=== PATIENT | female | born 1975 | race Caucasian/White ===

== ENCOUNTER 2016-11-06 06:11 | Inpatient (IN) ==
[2016-11-06] MEDS ORDERED: Lidocaine -MPF 1% 2 ML VIAL ID ONE (06:26)
[2016-11-06] MEDS: Ringers Solution, Lactated 1,000 ML IVC SCH ×2 (06:50→08:54)
[2016-11-06] MEDS ORDERED: Albuterol 2.5 MG/3 ML NEBULIZER IH ONE (06:52)
[2016-11-06] MEDS ORDERED: *HR* FentaNYL (PF) 100 MCG/2 ML VIAL ONE ×2 (07:08→08:23)
[2016-11-06] MEDS ORDERED: *HR* Midazolam HCl 2 MG/2 ML VIAL ONE (07:08)
[2016-11-06] MEDS ORDERED: *HR* Propofol 200 MG/20 ML VIAL IVP ONE (07:09)
[2016-11-06] MEDS ORDERED: *HR* Rocuronium Bromide 50 MG/5 ML VIAL ONE (07:11)
[2016-11-06] MEDS ORDERED: Lidocaine -MPF 2% 2 ML VIAL ONE (07:11)
[2016-11-06] MEDS ORDERED: *HR* Succinylcholine 200 MG/10 ML VIAL IVP ONE (07:11)
[2016-11-06 07:15] LABS: Basophils # 0.1 K/mcL (0.0-0.2); Basophils % 0.8 %; Eosinophils # 0.2 K/mcL (0.0-0.6); Eosinophils % 2.5 %; Hematocrit 40.8 % (35.3-44.9); Hemoglobin 13.3 g/dL (11.5-15.4); Immature Granulocytes % 0.2 % (0-4); Lymphocytes % 22.8 %; Mean Corpuscular HGB Conc 32.6 g/dL (31.6-35.5); Mean Corpuscular Hemoglobin 27.6 pg (28.0-33.3); Mean Corpuscular Volume 84.6 fL (83.0-100.0); Monocytes # 0.6 K/mcL (0.0-1.3); Platelet Count 209 K/mcL (140-400); Red Blood Count 4.82 M/mcL (3.82-4.97); Red Cell Distribution Width 13.1 % (11.5-14.5); Segmented Neutrophils % 66.7 %
[2016-11-06] MEDS ORDERED: CeFAZolin Pre 2,000 MG/100 ML 2,000 MG/100 ML BAG IVPB ONE (07:17)
--- NOTE | 2016-11-06 07:28 | Anesthesia Evaluation PreOp ---
Date of Encounter: 11/06/16 Time of Encounter: 07:26 - Past History Planned Operation: Total Abdominal Hysterectomy - BSO Cardiac History: Denies any Significant Hx Pulmonary History: Smoker MUSEUM TECHNICIAN History: Other (Anxiety/Depression) Other Medical History: GERD Anesthesia History: No Prior Anesthetic Complications, Past Anesthesia (Leep, BPS, c/s x 2 , Left knee scope, labral shaving) : No Test: Negative (10/30/2016) Alcohol Use: occasionally Drug use: marijuana Medications and Allergies Biotin 1,000 mcg PO DAILY 07/22/16 [History] Omeprazole [PriLOSEC] 20 mg PO DAILY 07/22/16 [History] hydrOXYzine HCl [Hydroxyzine HCl] 25 mg PO DAILY 07/22/16 [History] Allergies meperidine [From Demerol] Allergy (Verified 11/06/16 07:09) Confusion - Meds/Allergy Pre-op Review Medications Reviewed: Yes Allergies Reviewed: Yes Beta Blockers on Current Med List: No Anesthesia Results - Labs 11/06/16 06:45 Laboratory Tests 10/30/16 11/06/16 15:50 06:45 WBC 9.0 Hgb 13.3 Hct 40.8 Plt Count 209 Serum , Qual Negative Anesthesia Exam O2 Sat Height 1.6 m Height 1.6 m Weight 79.379 kg Weight 79.379 kg O2 Sat by Pulse Oximetry 99 O2 Sat by Pulse Oximetry 99 Vital Signs Temp Pulse Resp BP Pulse Ox 98.1 F 86 18 112/74 99 11/06/16 06:55 11/06/16 06:55 11/06/16 06:55 11/06/16 06:55 11/06/16 06:55 Height: 5'3'' Weight: 175# NPO (# of Hours): > 8 hrs Pain Scale: 0 Pain Scale Used: Numeric (1 - 10) - HEENT Pupil (Motor): Pupils equal, EOMI Mallampati: II Teeth: Normal Oral Opening: Greater than 3 - MUSEUM TECHNICIAN LOC: Oriented MUSEUM TECHNICIAN Motor: Normal RUE, Normal LUE, Normal RLE, Normal LLE, Normal Face MUSEUM TECHNICIAN Sensory: Normal: RUE, LUE, RLE, LLE, Face - Cardiac Rhythm: Regular Murmur: None JVD: No Carotid Bruit: No - Pulmonary Breath Sounds: bilateral Clear Respiratory Effort: Symmetrical Anesthesia Assess/Plan ASA Score: 2 Modified Foster Scale for Level of Consciousness: Cooperative, oriented, and tranquil Anesthetic Plan: General Autologous Blood: Yes Monitoring Plan: Standard Monitors Recovery Plan: PACU
--- NOTE | 2016-11-06 07:39 | History & Physical Report ---
Date of Encounter: 11/06/16 Time of Encounter: 07:39 24 Hour HP Update - Instructions Instructions: If the History and Physical is less than 30 days old and was completed prior to A.M. admission and or procedure and has NOT been updated on calendar day of procedure please complete this update prior to performing procedure. - Update Patient reports changes in Medical Condition: No Changes in examination, assessment, or condition: No Changes in Medication: No Preop tests/diagnostics Reviewed: Yes Surgery Remains Indicated: Yes Consent for Planned Operative Procedure(s) Verified: Yes - Pre-Operative Checklist Preoperative Checklist Indicated: Yes Prophylactic Antibiotic Ordered: Yes Home Medications Include Beta Wenceslao: No Beta Wenceslao Taken Today (Day of Surgery): No Beta Wenceslao Taken Yesterday (Day Prior to Surgery): No Is VTE Prophylaxis Indicated?: Yes
[2016-11-06] MEDS ORDERED: Dexamethasone 4 MG/ML VIAL ONE (08:35)
[2016-11-06] MEDS ORDERED: Ondansetron 4 MG/2 ML VIAL ONE (08:35)
[2016-11-06] MEDS ORDERED: *HR* HYDROmorphone 2 MG/ML SYRINGE ONE (08:36)
[2016-11-06] MEDS ORDERED: Neostigmine Methylsulfate 3 MG/3 ML SYRINGE ONE (09:28)
[2016-11-06] MEDS ORDERED: *HR* Promethazine 25 MG/ML VIAL IVP PRN ×2 (09:33→22:51)
--- NOTE | 2016-11-06 10:25 | OB/GYN Procedure Note ---
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 An incision was made into the abdomen down through the subcutaneous tissue, muscular fascia and peritoneum. Once inside the abdominal cavity, an O'Jairo O'Sandhu retractor was placed to expose the pelvic cavity with lap sponges. The uterus was then identified and grasped on the fundus with facundo clamps with upward traction. The round ligaments on either side were identified and individually dissected and ligated with the Ligasure device. This allowed us to then create a bladder flap by both blunt and sharp dissection. The fallopian tube and ovarian ligament were isolated through the broad ligament from the uterine body and ligated with the Ligasure device as well. We then skeletonized the uterine vessels on either side and carefully dissected the bladder flap anteriorly. The bladder was found to be mildly adherent to the cervix but we were able to take it down without too much difficulty. Posteriorly, the peritoneum was dissected down toward the uterosacral ligaments. The Ligasure device was then placed at each isthmic portion of the cervical body junction where the uterine arteries adjoined the uterus. These were clamped, ligated and divided using the Ligasure. The remainder of the uterus was then removed by the clamp-cut- ligation technique using the Ligasure on all major pedicles. With removal of the uterus, the vaginal cuff was closed in the usual manner using 0-vicryl in interrupted manner. I performed a cystoscopy and confirmed that there were no stitches through the bladder. I also confirmed ureteral flow from both orifices. I changed gloves and gown and returned my attention to the abdomen where hemostasis was then inspected and secured throughout the entire area. The ovaries were left in situ. The lap sponges were then removed and the self- retaining retractor was removed. The patient tolerated the operation nicely. There were no complications associated with this surgical procedure to this point. The sponge count was correct times 2 at this time. The Verduzco catheter was inspected and clear urine was noted. Having removed all instruments and packs, we then began closure of the abdomen. The fascia was closed with #0 Vicryl in a running continuous manner and the subcutaneous tissue was also closed with #3-0 Vicryl in interrupted manner. The skin was closed with #4-0 vicryl. The patient tolerated the operation nicely and was then taken to the Recovery Room in good condition.
[2016-11-06] MEDS: *HR* HYDROmorphone (PF) 1 MG/ML SYRINGE IVP PRN ×2 (10:30→10:46)
[2016-11-06] MEDS ORDERED: Naloxone 0.4 MG/ML INJ IVP PRN (10:36)
[2016-11-06] MEDS ORDERED: *HR* OxyCODONE/APAP 5/325 TABLET PO PRN (10:36)
--- NOTE | 2016-11-06 11:02 | Anesthesia Evaluation Post Op ---
Date of Encounter: 11/06/16 Time of Encounter: 11:00 - Vital Signs Vital Signs: Vital Signs/O2 Sat, Most Current Temp Pulse Resp BP Pulse Ox 98.6 F 85 16 125/85 97 11/06/16 10:55 11/06/16 10:55 11/06/16 10:55 11/06/16 10:55 11/06/16 10:55 - Lungs Lungs: Clear Ascult./Percussion - Airway Airway: Non-obstructed - Cardiovascular Regular Rate - Mental Status Mental Status: Alert & Oriented, Answers Appropriately - Pain Pain Scale: 7 (dilaudid given) Pain Scale used: Numeric (1 - 10) - Nausea Vomiting Nausea Vomiting: Not Present - Hydration Hydration: Ice chips, Verduzco catheter Notes: 11/06/16 11:01 VSS, awake, stable - Discharge PostOp Status: Transfer Patient to floor
[2016-11-06] MEDS: Ibuprofen 600 MG TABLET PO PRN (16:22)
[2016-11-06] MEDS ORDERED: OxyCODONE CONC 5 MG/0.25 ML ORAL.SYG PO PRN (17:06)
[2016-11-06] MEDS ORDERED: *HR* OxyCODONE Immed Rel 5 MG TABLET PO PRN (18:15)
[2016-11-06] MEDS: *HR* OxyCODONE/APAP 10/325 TABLET PO PRN ×2 (18:18→22:46)
[2016-11-07 03:47] LABS: Basophils % 0.1 %; Eosinophils % 0.2 %; Hematocrit 37.1 % (35.3-44.9); Hemoglobin 12.3 g/dL (11.5-15.4); Immature Granulocytes % 0.5 % (0-4); Lymphocytes # 1.8 K/mcL (0.6-4.6); Lymphocytes % 16.5 %; Mean Corpuscular HGB Conc 33.2 g/dL (31.6-35.5); Mean Corpuscular Volume 84.5 fL (83.0-100.0); Mean Platelet Volume 9.8 fL (9.4-12.4); Monocytes # 0.7 K/mcL (0.0-1.3); Monocytes % 6.4 %; Neutrophils # 8.5 K/mcL (1.6-8.9); Platelet Count 210 K/mcL (140-400); Red Blood Count 4.39 M/mcL (3.82-4.97); Red Cell Distribution Width 13.1 % (11.5-14.5); Segmented Neutrophils % 76.3 %
[2016-11-07] MEDS: *HR* OxyCODONE/APAP 10/325 TABLET PO PRN ×3 (05:10→13:22)
--- NOTE | 2016-11-07 11:00 | OB/GYN Progress Note ---
Date of Encounter: 11/07/16 Time of Encounter: 10:58 - Assessment and Plan (1) Status post hysterectomy Current Visit: Yes Status: Acute ambulation encouraged, cont diet, cont pain med regimen, will aim for discharge tomorrrow, otherwise cont current inpt care Subjective - Subjective Interval history: patient doing well, pain is under control, tolerated breakfast without issues, tenorio is out, has not yet used the bathroom, not yet ambulating Objective - Vital Signs Latest vital signs: Vital Signs Temp Pulse Pulse Resp BP Pulse Ox 11/07/16 09:36 16 11/07/16 08:30 98 F 90 16 123/77 98 11/07/16 06:17 98.5 F 96 14 131/83 98 11/07/16 00:25 98.8 F 94 16 132/83 96 11/06/16 23:24 88 11/06/16 21:45 16 11/06/16 21:40 98.3 F 98 16 127/85 97 11/06/16 16:00 97.8 F 94 94 16 139/93 96 11/06/16 14:30 97.7 F 90 18 143/95 98 11/06/16 13:32 97.7 F 92 90 14 138/87 98 11/06/16 13:31 97.7 F 92 14 138/87 98 11/06/16 13:30 90 18 11/06/16 12:35 97.9 F 90 14 111/69 94 11/06/16 12:30 97.9 F 90 90 14 111/69 94 11/06/16 12:00 97.5 F L 80 88 14 135/84 92 11/06/16 11:30 97.5 F L 80 88 14 131/85 94 11/06/16 11:05 98.6 F 78 16 128/94 94 Intake and Output 11/06/16 11/07/16 11/07/16 23:59 07:59 15:59 Intake Total 1000 / 1000 0 / 0 120 / 120 Output Total 900 / 900 1100 / 1100 Balance 100 / 100 -1100 / -1100 120 / 120 Intake: IV Fluids 1000 / 1000 Lactated Ringers 1,000 ML 1000 / 1000 @ 25 mls/hr IVC .Q24H MERVIN Rx#:[id number] Oral 0 / 0 0 / 0 120 / 120 Output: Urine 600 / 600 Catheter 900 / 900 500 / 500 Other: Meal Breakfast Percent of Meal Consumed 20% Weight 80.1 kg Patient Weight 11/07/16 23:59 Weight 80.1 kg - I&O's I&O's: Intake & Output 11/04/16 11/05/16 11/06/16 11/07/16 23:59 23:59 23:59 23:59 Intake Total 1999 / 1999 120 / 120 Output Total 1675 / 1675 1100 / 1100 Balance 325 / 325 -980 / -980 Weight 83.6 kg 80.1 kg - Exam Lungs: bilateral: normal Chest: Normal S1, Normal S2 Extremities: Present: normal Abdomen: Present: normal appearance, soft Incision OB: Present: dressed Consult Discharge Plan - Plan Referrals: Kathrine Ortega, HAT LINER [Primary Care Provider] -
[2016-11-07] MEDS: Ibuprofen 600 MG TABLET PO PRN ×2 (11:46→21:39)
[2016-11-08] MEDS: *HR* OxyCODONE/APAP 10/325 TABLET PO PRN ×3 (00:02→10:43)
[2016-11-08 07:59] VITALS: BP 123/73
--- NOTE | 2016-11-08 12:15 | Discharge Summary ---
Date of Encounter: 11/08/16 Time of Encounter: 12:15 - Discharge Diagnosis (1) Status post hysterectomy Priority: Primary Status: Acute Comments: patient doing very well, ok for discharge - Discharge Medications Home Medications: Biotin 1,000 mcg PO DAILY 07/22/16 [History] Omeprazole [PriLOSEC] 20 mg PO DAILY 07/22/16 [History] hydrOXYzine HCl [Hydroxyzine HCl] 25 mg PO DAILY 07/22/16 [History] Allergies/Adverse Reactions: Allergies meperidine [From Demerol] Allergy (Verified 11/06/16 07:09) Confusion Data Procedures and tests throughout hospitalization: Laboratory Tests 11/06/16 11/06/16 11/07/16 06:45 06:45 03:24 WBC 9.0 11.1 RBC 4.82 4.39 Hgb 13.3 12.3 Hct 40.8 37.1 MCV 84.6 84.5 MCH 27.6 L 28.0 MCHC 32.6 33.2 RDW 13.1 13.1 Plt Count 209 210 MPV 10.0 9.8 Immature Gran % 0.2 0.5 Seg Neutrophils % 66.7 76.3 Lymphocytes % 22.8 16.5 Monocytes % 7.0 6.4 Eosinophils % 2.5 0.2 Basophils % 0.8 0.1 Neutrophils # 6.0 8.5 Lymphocytes # 2.0 1.8 Monocytes # 0.6 0.7 Eosinophils # 0.2 0.0 Basophils # 0.1 0.0 Blood Type O POSITIVE Antibody Screen NEGATIVE Date of admission: 11/06/16 11:42 Primary care physician: Kathrine Ortega CNP - Patient Status Disposition: Home, Self-Care Condition: Good Functional capacity at discharge: independent ambulation Overall status at discharge: patient is progressing back to baseline - Discharge Instructions Follow Up With: Kathrine Ortega CNP [Primary Care Provider] - Hospital Course GUM MIXER Time Attestation: Total time spent providing and/or coordinating discharge services: Exam - Constitutional Vitals: Temp Pulse Resp BP Pulse Ox 97.1 F L 98 16 123/73 97 11/08/16 07:58 11/08/16 07:58 11/08/16 07:58 11/08/16 07:58 11/07/16 20:00 General appearance IM: A&O X 3 - Respiratory Respiratory exam: Present: CTAB - Cardiovascular Cardiovascular exam IM: Present: RRR - GI/Abdominal GI/Abdominal exam IM: normal bowel sounds Incision: intact - VTE Documentation of Mechanical Device: Intermittent pneumatic compression device
== END 2016-11-08 13:56 | disposition home or self-care (01) | DRG 741 ==
LOC: SAMDAY 06:11 → 1NENUOBS 11:42
PROVIDERS: ADMIT Student in an Organized Health Care Education/Training Program; ATTEND Student in an Organized Health Care Education/Training Program

== ENCOUNTER 2016-11-23 08:55 | Observation (INO) ==
[2016-11-23] MEDS ORDERED: *HR* HYDROmorphone (PF) 1 MG/ML SYRINGE IVP ONE ×3 (09:08→11:55)
[2016-11-23] MEDS ORDERED: Metoclopramide 10 MG/2 ML VIAL IVP ONE ×2 (09:08→13:43)
--- NOTE | 2016-11-23 09:08 | Emergency Department Note ---
Disposition Clinical Impression: Abdominal pain, Vomiting, History of recent surgery, Dehydration, Intra- abdominal fluid collection Disposition: Admitted As Inpatient Referrals: Kathrine Ortega [employer] VICE PRESIDENT [Primary Care Provider] - Forms: Work/School Release, ED Satisfaction Letter General Adult HPI - General Chief complaint: ED Abdominal Pain Stated complaint: abd pain Time Seen by Provider: 11/23/16 09:08 Source: patient Limitations: no limitations - History of Present Illness HPI Narrative: 41-year-old female reports emergency department complaining of midepigastric abdominal pain and vomiting. She had an open hysterectomy about [address] Pickard. The patient reports she was doing well until a few days ago she developed abdominal pain. She came to emergency department and was evaluated where she had a CT scan and blood work as well as urinalysis. There was small amount of fluid noted on the CT scan. The patient was discharged in the ED and follow-up with her personal [employer]GE[employer] yesterday. He reviewed the testing with her and put her on an antibiotic as prophylaxis based on some fluid noted in the abdomen. The patient reports persistent vomiting and midepigastric pain today. She has no history of diabetes. There has been no leg swelling or pain or coughing of blood chest pain or shortness of breath. No fevers or heavy vaginal discharge noted. There is no history of flank pain. She has no personal history of DVT PE cancer or CAD. There is no history of trauma otherwise. There is no history of wound dehiscence or bleeding. No syncope. No blood in the emesis. She had had a few episodes of diarrhea a few days ago but this is now abated. She states she has not taken anything by mouth for 3 days. She is not anticoagulated. Diarrhea since 2 days ago. Pain Scale: 6 - Related Data Home Medications Medication Instructions Recorded Confirmed Biotin 1,000 mcg PO DAILY 07/22/16 11/23/16 Omeprazole [PriLOSEC] 20 mg PO DAILY 07/22/16 11/23/16 hydrOXYzine HCl [Hydroxyzine HCl] 25 mg PO DAILY 07/22/16 11/23/16 Sulfamethoxazole/Trimeth DS 1 each PO BID 11/23/16 11/23/16 [Bactrim DS] metroNIDAZOLE [Flagyl] 500 mg PO BID 11/23/16 11/23/16 Previous Rx's Medication Instructions Recorded Ibuprofen [Motrin] 600 mg PO Q6HR PRN #60 tab 11/08/16 Dicyclomine [Bentyl] 10 mg PO QID PRN #15 capsule 11/21/16 Metoclopramide [Reglan] 10 mg PO Q6HR PRN #15 tablet 11/21/16 Ondansetron ODT [Zofran ODT] 4 mg SL Q6HR PRN #15 tab.rapdis 11/21/16 Allergies Allergy/AdvReac Type Severity Reaction Status Date / Time meperidine [From Demerol] Allergy Confusion Verified 11/23/16 12:03 All systems ED: reviewed and negative except as stated. Past Medical History - Past Medical History Medical history: Reports: GERD Psychiatric history: Reports: no psych history - Social History Smoking Status: Never smoker Smokeless Tobacco Status: No Alcohol use: Reports: occasionally Drug use: Reports: marijuana Physical Exam - General Limitations: no limitations General appearance: alert, in no apparent distress - Head Head exam: atraumatic, normocephalic, normal inspection - Eye Eye exam: Present: normal appearance, PERRL, EOMI - ENT ENT exam: normal exam, normal oropharynx, mucous membranes moist - Neck Neck exam: Present: normal inspection, full ROM, trachea midline. Absent: tenderness - Chest Chest inspection: Present: symmetric chest wall rise. Absent: tenderness - Respiratory Respiratory exam: Present: normal lung sounds bilaterally. Absent: respiratory distress, wheezes, stridor, accessory muscle use, prolonged expiratory phase - Cardiovascular Cardiovascular exam: Present: regular rate, normal rhythm, normal heart sounds - Abdominal Exam Abdominal exam: Present: soft, tenderness, scar (Surgical wound clean dry intact no redness or evidence of infection.). Absent: distention, guarding, rebound, rigidity, normal bowel sounds, pulsatile mass - Extremities Exam Extremities exam: Present: normal inspection, full ROM, normal capillary refill. Absent: tenderness, pedal edema, joint swelling, calf tenderness - Expanded Lower Extremity Exam Lower leg exam: Absent: Homans' sign Neurovascular/Tendon exam: Present: normal capillary refill. Absent: motor deficit, sensory deficit, tendon deficit, extremity cold to touch, pallor - Back Exam Back exam: Present: normal inspection, full ROM. Absent: tenderness, CVA tenderness (R), CVA tenderness (L), vertebral tenderness - Neurological Exam Neurological exam: Present: alert, oriented X3, CN II-XII intact. Absent: motor sensory deficit - Psychiatric Psychiatric exam: Present: normal affect, normal mood - Skin Skin exam: Present: warm, dry, intact, normal color. Absent: rash, cyanosis, diaphoresis, erythema, pallor, mottled Course - Reevaluation(s) Reevaluation #1: I consult with Dr. Menendez, the hospitalist regarding potential hospital admission for dehydration, he asked me to consult with OB. Reevaluation #2: Dr. Pickard is not supervisor money room, the patient's surgeon, I spoke with Dr. Galeas, OB/ PAPER BALING MACHINE OPERATOR on-call, who felt it would be reasonable to admit the patient and asked me to reconsult with the hospitalist. He is available if needed as an admitting physician or residential sales consultant. Reevaluation #3: I reconsulted Dr. Menendez who states he will come to the ED to evaluate the patient. Vital Signs Temperature 97.5 F L 11/23/16 08:56 Pulse Rate 118 11/23/16 08:56 Respiratory Rate 20 11/23/16 08:56 Blood Pressure 134/91 11/23/16 08:56 O2 Sat by Pulse Oximetry 94 11/23/16 08:56 Temperature 97.5 F L 11/23/16 08:56 Pulse Rate 78 11/23/16 13:17 Respiratory Rate 16 11/23/16 13:17 Blood Pressure 106/66 11/23/16 13:17 O2 Sat by Pulse Oximetry 98 11/23/16 13:17 Oxygen Delivery Oxygen Delivery Room Air Medical Decision Making - [facility] Narrative Medical decision making narrative: The patient is status post hysterectomy about 2 weeks ago. She was seen in the ED on and evaluated and discharged. She saw her primary [employer]GE[employer] yesterday and was placed on antibiotics as prophylaxis for intra-abdominal fluid. She returns to the ED today complaining of recurrent vomiting. Initially she was tachycardic, her labs to indicate an element of dehydration. She was given 2 L of IV fluid and pain control measures as well as anti-emetics in the ED. She was unable to urinate initially. This is the patient's third visit to a provider in 3 days. She seems to have recurrent emesis and is becoming dehydrated. She does not feel comfortable going home. Given the patient's tachycardia, abnormal lab values, 3 visits to 3 different providers in 3 days with concerns for vomiting and abdominal pain, and apparent dehydration, I thought it be appropriate to admit the patient to the hospital. I discussed the case with the hospitalist on-call who has accepted the patient to their care. Dr. Menendez did evaluate the patient in the ED and has accepted the patient. The patient stable pending admission. - Lab Data Lab results reviewed: Yes I reviewed the patient's lab results. Result diagrams: 11/23/16 09:45 11/23/16 09:45 Lab Results 11/23/16 11/23/16 11/23/16 Range/Units 09:45 09:45 09:45 WBC 7.2 (4.3-11.1) K/mcL RBC 4.45 (3.82-4.97) M/mcL Hgb 12.2 (11.5-15.4) g/dL Hct 37.0 (35.3-44.9) % MCV 83.1 (83.0-100.0) fL MCH 27.4 L (28.0-33.3) pg MCHC 33.0 (31.6-35.5) g/dL RDW 13.1 (11.5-14.5) % Plt Count 313 (140-400) K/mcL MPV 9.3 L (9.4-12.4) fL Immature Gran % 0.6 (0-4) % Seg Neutrophils % 79.6 % Lymphocytes % 15.9 % Monocytes % 3.6 % Eosinophils % 0.0 % Basophils % 0.3 % Neutrophils # 5.7 (1.6-8.9) K/mcL Lymphocytes # 1.1 (0.6-4.6) K/mcL Monocytes # 0.3 (0.0-1.3) K/mcL Eosinophils # 0.0 (0.0-0.6) K/mcL Basophils # 0.0 (0.0-0.2) K/mcL PT 12.8 H (9.4-12.1) Seconds INR 1.2 APTT 23.2 L (26.0-36.0) Seconds Sodium 138 (136-145) mEq/L Potassium 3.6 (3.5-4.5) mEq/L Chloride 106 (98-109) mEq/L Carbon Dioxide 17 L (19-29) mEq/L BUN 19 D (7-20) mg/dL Creatinine 1.13 H (0.57-1.11) mg/dL Est GFR ( Amer) > 60 (> 60) Est GFR (Non-Af Amer) 53 L (> 60) BUN/Creatinine Ratio 17 (6-26) Glucose 171 H (70-99) mg/dL Calculated Osmolality 292 (280-300) Lactic Acid (0.5-2.2) mmol/L Calcium 8.7 (8.6-10.8) mg/dL Total Bilirubin 0.6 (0.2-1.2) mg/dL Direct Bilirubin 0.3 (0.0-0.5) mg/dL Indirect Bilirubin 0.3 (0.0-1.2) mg/dL AST 12 (5-34) Units/L ALT 16 (0-55) Units/L Alkaline Phosphatase 92 (38-126) Units/L Troponin I (0-0.03) ng/mL C-Reactive Protein (Less than 5) mg/L Serum Total Protein 7.1 (6.0-8.3) g/dL Albumin 3.7 (3.5-5.0) g/dL Globulin 3.4 (2.4-3.5) g/dL Albumin/Globulin Ratio 1.1 (1.1-2.2) Lipase 44 (8-78) Units/L Urine Color (Yellow) Urine Clarity (Clear) Urine pH (5.0-8.0) pH Units Ur Specific [place] (1.010-1.025) Urine Protein (Neg-Trace) mg/dL Urine Glucose (UA) (Normal) mg/dL Urine Ketones (Negative) mg/dL Urine Blood (Negative) Urine Nitrite (Negative) Urine Bilirubin (Negative) Urine Urobilinogen (Normal) mg/dL Ur Leukocyte Esterase (Negative) Ur Culture Indicated? (NO) Urine Opiates Screen (Dtuwvu=701) ng/mL Ur Barbiturates Screen (Xuetii=021) ng/mL Ur Phencyclidine Scrn (Cutoff=25) ng/mL Ur Amphetamines Screen (Jjhozs=2078) ng/mL U Benzodiazepines Scrn (Qqoyii=478) ng/mL Urine Cocaine Screen (Cutoff= 300) ng/mL U Marijuana (THC) Screen (Cutoff = 50) ng/mL 11/23/16 11/23/16 11/23/16 Range/Units 09:45 09:45 09:45 WBC (4.3-11.1) K/mcL RBC (3.82-4.97) M/mcL Hgb (11.5-15.4) g/dL Hct (35.3-44.9) % MCV (83.0-100.0) fL MCH (28.0-33.3) pg MCHC (31.6-35.5) g/dL RDW (11.5-14.5) % Plt Count (140-400) K/mcL MPV (9.4-12.4) fL Immature Gran % (0-4) % Seg Neutrophils % % Lymphocytes % % Monocytes % % Eosinophils % % Basophils % % Neutrophils # (1.6-8.9) K/mcL Lymphocytes # (0.6-4.6) K/mcL Monocytes # (0.0-1.3) K/mcL Eosinophils # (0.0-0.6) K/mcL Basophils # (0.0-0.2) K/mcL PT (9.4-12.1) Seconds INR APTT (26.0-36.0) Seconds Sodium (136-145) mEq/L Potassium (3.5-4.5) mEq/L Chloride (98-109) mEq/L Carbon Dioxide (19-29) mEq/L BUN (7-20) mg/dL Creatinine (0.57-1.11) mg/dL Est GFR ( Amer) (> 60) Est GFR (Non-Af Amer) (> 60) BUN/Creatinine Ratio (6-26) Glucose (70-99) mg/dL Calculated Osmolality (280-300) Lactic Acid 3.2 H (0.5-2.2) mmol/L Calcium (8.6-10.8) mg/dL Total Bilirubin (0.2-1.2) mg/dL Direct Bilirubin (0.0-0.5) mg/dL Indirect Bilirubin (0.0-1.2) mg/dL AST (5-34) Units/L ALT (0-55) Units/L Alkaline Phosphatase (38-126) Units/L Troponin I 0.00 (0-0.03) ng/mL C-Reactive Protein 2 (Less than 5) mg/L Serum Total Protein (6.0-8.3) g/dL Albumin (3.5-5.0) g/dL Globulin (2.4-3.5) g/dL Albumin/Globulin Ratio (1.1-2.2) Lipase (8-78) Units/L Urine Color (Yellow) Urine Clarity (Clear) Urine pH (5.0-8.0) pH Units Ur Specific [place] (1.010-1.025) Urine Protein (Neg-Trace) mg/dL Urine Glucose (UA) (Normal) mg/dL Urine Ketones (Negative) mg/dL Urine Blood (Negative) Urine Nitrite (Negative) Urine Bilirubin (Negative) Urine Urobilinogen (Normal) mg/dL Ur Leukocyte Esterase (Negative) Ur Culture Indicated? (NO) Urine Opiates Screen (Jdfxxw=850) ng/mL Ur Barbiturates Screen (Qbfdfz=275) ng/mL Ur Phencyclidine Scrn (Cutoff=25) ng/mL Ur Amphetamines Screen (Rhisem=7923) ng/mL U Benzodiazepines Scrn (Vhcxrz=911) ng/mL Urine Cocaine Screen (Cutoff= 300) ng/mL U Marijuana (THC) Screen (Cutoff = 50) ng/mL 11/23/16 11/23/16 Range/Units 11:35 11:35 WBC (4.3-11.1) K/mcL RBC (3.82-4.97) M/mcL Hgb (11.5-15.4) g/dL Hct (35.3-44.9) % MCV (83.0-100.0) fL MCH (28.0-33.3) pg MCHC (31.6-35.5) g/dL RDW (11.5-14.5) % Plt Count (140-400) K/mcL MPV (9.4-12.4) fL Immature Gran % (0-4) % Seg Neutrophils % % Lymphocytes % % Monocytes % % Eosinophils % % Basophils % % Neutrophils # (1.6-8.9) K/mcL Lymphocytes # (0.6-4.6) K/mcL Monocytes # (0.0-1.3) K/mcL Eosinophils # (0.0-0.6) K/mcL Basophils # (0.0-0.2) K/mcL PT (9.4-12.1) Seconds INR APTT (26.0-36.0) Seconds Sodium (136-145) mEq/L Potassium (3.5-4.5) mEq/L Chloride (98-109) mEq/L Carbon Dioxide (19-29) mEq/L BUN (7-20) mg/dL Creatinine (0.57-1.11) mg/dL Est GFR ( Amer) (> 60) Est GFR (Non-Af Amer) (> 60) BUN/Creatinine Ratio (6-26) Glucose (70-99) mg/dL Calculated Osmolality (280-300) Lactic Acid (0.5-2.2) mmol/L Calcium (8.6-10.8) mg/dL Total Bilirubin (0.2-1.2) mg/dL Direct Bilirubin (0.0-0.5) mg/dL Indirect Bilirubin (0.0-1.2) mg/dL AST (5-34) Units/L ALT (0-55) Units/L Alkaline Phosphatase (38-126) Units/L Troponin I (0-0.03) ng/mL C-Reactive Protein (Less than 5) mg/L Serum Total Protein (6.0-8.3) g/dL Albumin (3.5-5.0) g/dL Globulin (2.4-3.5) g/dL Albumin/Globulin Ratio (1.1-2.2) Lipase (8-78) Units/L Urine Color Yellow (Yellow) Urine Clarity Clear (Clear) Urine pH 7.0 (5.0-8.0) pH Units Ur Specific [place] 1.024 (1.010-1.025) Urine Protein Negative (Neg-Trace) mg/dL Urine Glucose (UA) Normal (Normal) mg/dL Urine Ketones 40 H (Negative) mg/dL Urine Blood Negative (Negative) Urine Nitrite Negative (Negative) Urine Bilirubin Negative (Negative) Urine Urobilinogen Normal (Normal) mg/dL Ur Leukocyte Esterase Negative (Negative) Ur Culture Indicated? NO (NO) Urine Opiates Screen Positive H (Lnqnmp=095) ng/mL Ur Barbiturates Screen Negative (Vkczru=210) ng/mL Ur Phencyclidine Scrn Negative (Cutoff=25) ng/mL Ur Amphetamines Screen Negative (Kkgvih=7859) ng/mL U Benzodiazepines Scrn Negative (Rmxdpf=434) ng/mL Urine Cocaine Screen Negative (Cutoff= 300) ng/mL U Marijuana (THC) Screen Positive H (Cutoff = 50) ng/mL - Radiology Data Radiology results reviewed: Yes I reviewed the patient's radiology results.
[2016-11-23] MEDS ORDERED: 0.9 % Sodium Chloride 1,000 ML IVC ONE ×2 (09:09→10:28)
[2016-11-23 09:54] LABS: Basophils % 0.3 %; Hemoglobin 12.2 g/dL (11.5-15.4); Immature Granulocytes % 0.6 % (0-4); Lymphocytes # 1.1 K/mcL (0.6-4.6); Lymphocytes % 15.9 %; Mean Corpuscular Hemoglobin 27.4 pg (28.0-33.3); Mean Corpuscular Volume 83.1 fL (83.0-100.0); Mean Platelet Volume 9.3 fL (9.4-12.4); Monocytes # 0.3 K/mcL (0.0-1.3); Monocytes % 3.6 %; Neutrophils # 5.7 K/mcL (1.6-8.9); Platelet Count 313 K/mcL (140-400); Red Blood Count 4.45 M/mcL (3.82-4.97); Red Cell Distribution Width 13.1 % (11.5-14.5); Segmented Neutrophils % 79.6 %
[2016-11-23 10:00] LABS: INR 1.2; Prothrombin Time 12.8 Seconds (9.4-12.1)
[2016-11-23 10:02] LABS: Activated Partial Thrombo Time 23.2 Seconds (26.0-36.0)
[2016-11-23 10:16] LABS: Alanine Aminotransferase 16 Units/L (0-55); Albumin 3.7 g/dL (3.5-5.0); Albumin/Globulin Ratio 1.1 (1.1-2.2); Alkaline Phosphatase 92 Units/L (38-126); Aspartate Amino Transferase 12 Units/L (5-34); BUN/Creatinine Ratio 17 (6-26); Bilirubin,Direct 0.3 mg/dL (0.0-0.5); Bilirubin,Indirect 0.3 mg/dL (0.0-1.2); Bilirubin,Total 0.6 mg/dL (0.2-1.2); Blood Urea Nitrogen 19 mg/dL (7-20); Calcium 8.7 mg/dL (8.6-10.8); Carbon Dioxide 17 mEq/L (19-29); Chloride 106 mEq/L (98-109); Globulin 3.4 g/dL (2.4-3.5); Glucose 171 mg/dL (70-99); Lipase 44 Units/L (8-78); Osmolality,Calculated 292 (280-300); Potassium 3.6 mEq/L (3.5-4.5); Sodium 138 mEq/L (136-145); Total Protein 7.1 g/dL (6.0-8.3); eGFR For African Americans > 60 (> 60); eGFR For Non-African Americans 53 (> 60)
[2016-11-23 11:51] LABS: Amphetamine Screen,Urine Negative ng/mL (Cutoff=1000); Barbiturate Screen,Urine Negative ng/mL (Cutoff=200); Benzodiazepines Screen,Urine Negative ng/mL (Cutoff=200); Cannabinoid Screen,Urine Positive ng/mL (Cutoff = 50); Cocaine Screen,Urine Negative ng/mL (Cutoff= 300); Opiate Screen,Urine Positive ng/mL (Cutoff=300); Phencyclidine Screen,Urine Negative ng/mL (Cutoff=25)
[2016-11-23 11:52] LABS: Bilirubin,Urine Negative (Negative); Blood,Urine Negative (Negative); Clarity,Urine Clear (Clear); Color,Urine Yellow (Yellow); Glucose,Urine (UA) Normal (Normal); Ketones,Urine 40 mg/dL (Negative); Leukocyte Esterase,Urine Negative (Negative); Nitrite,Urine Negative (Negative); Protein,Urine Negative (Neg-Trace); Specific Gravity,Urine 1.024 (1.010-1.025); Urobilinogen,Urine Normal (Normal)
[2016-11-23] MEDS ORDERED: Acetaminophen 325 MG TABLET PO PRN (14:30)
[2016-11-23] MEDS ORDERED: Naloxone 0.4 MG/ML INJ IVP PRN (14:30)
[2016-11-23] MEDS ORDERED: Ondansetron 4 MG/2 ML VIAL IVP PRN (14:30)
--- NOTE | 2016-11-23 14:39 | Internal Med History&Physical ---
Date of Encounter: 11/23/16 Time of Encounter: 14:34 Assessment and Plan (1) Intractable nausea and vomiting Current visit: Yes Status: Acute IV Zofran and Phenergan as needed for vomiting. Nothing by mouth. Qualifiers: Vomiting type: unspecified Qualified Code(s): R11.2 - Nausea with vomiting , unspecified (2) Acute renal failure Current visit: Yes Status: Acute Creatinine 2 days ago was 0.9 currently 1.13 showing an upward trend. I suspect mild acute renal failure secondary to dehydration and possible use of nonsteroidal anti-inflammatory drugs. I will treat the patient with IV fluids. Hold nephrotoxins including NSAIDs. Monitor BUN and creatinine. Replete electrolytes as needed. Qualifiers: Acute renal failure type: unspecified Qualified Code(s): N17.9 - Acute kidney failure, unspecified (3) DVT prophylaxis Current visit: Yes Status: Acute Encourage early ambulation. Short stay expected does not require pharmacological prophylaxis. (4) Status post hysterectomy Current visit: No Status: Acute She has a small amount of fluid in the pelvis. I do not have suspicion for infection. She has been afebrile, white count is negative. CRP within normal limits. I will hold the antibiotics and monitor white blood cell count and temperature curve. I will consult [employer]. (5) History of recent surgery Current visit: Yes Status: Acute Recovering well. (6) Dehydration Current visit: Yes Status: Acute IV fluids. Nothing by mouth. (7) GERD (gastroesophageal reflux disease) Current visit: Yes Status: Acute Switch to IV Protonix. She is on oral omeprazole at home. Qualifiers: Esophagitis presence: without esophagitis Qualified Code(s): K21.9 - Gastro -esophageal reflux disease without esophagitis (8) Gastroenteritis Current visit: Yes Status: Acute She has sudden onset epigastric abdominal pain, nausea vomiting and diarrhea. She denies sick contacts or any unusual foods. Nevertheless the clinical picture is highly consistent with viral gastroenteritis. We will treat her with IV fluids, I by Zofran and Phenergan. IV Dilaudid for pain. Nothing by mouth. IV Protonix. She is at high risk for morbidity and complications due to treatment with intravenous control substances. Internal Medicine - H&P: HPI Chief complaint: Nausea and vomiting Admitted From: Emergency Dept Plans for Post Hospital Care: Home History of present illness: Ms. Holden is a 41 year old female with past medical history significant for GERD who presented to the hospital for evaluation of nausea and vomiting. She had complete abdominal hysterectomy performed at this hospital 15 days ago. She was in her usual state of health until 2 days ago when she started having sudden onset nausea and vomiting diarrhea and epigastric abdominal pain. She presented to the hospital 2 days ago and was evaluated in the emergency department. At that time a CT of the abdomen and pelvis was done and showed a small amount of pelvic fluid. She was treated symptomatically and discharged home. She saw her [facility] provider yesterday who prescribed antibiotics. She was unable to take her antibiotics due to profuse vomiting. She continued to have nausea vomiting of an abdominal pain and presented to the hospital again today. She states that diarrhea has resolved and has not had a bowel movement for last 2 days. She reports epigastric abdominal pain, severe, crampy in nature associated with severe nausea and nonbloody vomiting. Vomiting is triggered by any attempts to eat or drink. She did report decreased oral intake and decreased urination over the last 2 days. A 10 point review of systems was negative except as above Family history negative for premature coronary artery disease in both parents. Social history patient is a nonsmoker drinks alcohol socially, smokes marijuana nightly on a regular basis but denies any other recreational drug use. Past Med Surg Social Fam HX - Past Medical History Medical history: GERD Psychiatric history: no psych history - Social History Smoking Status: Never smoker Smokeless Tobacco Status: No Alcohol use: occasionally Drug use: marijuana Internal Medicine - H&P: Meds Biotin 1,000 mcg PO DAILY 07/22/16 [History] Omeprazole [PriLOSEC] 20 mg PO DAILY 07/22/16 [History] hydrOXYzine HCl [Hydroxyzine HCl] 25 mg PO DAILY 07/22/16 [History] Ibuprofen [Motrin] 600 mg PO Q6HR PRN #60 tab 11/08/16 [Rx] Dicyclomine [Bentyl] 10 mg PO QID PRN #15 capsule 11/21/16 [Rx] Metoclopramide [Reglan] 10 mg PO Q6HR PRN #15 tablet 11/21/16 [Rx] Ondansetron ODT [Zofran ODT] 4 mg SL Q6HR PRN #15 tab.rapdis 11/21/16 [Rx] Sulfamethoxazole/Trimeth DS [Bactrim DS] 1 each PO BID 11/23/16 [History] metroNIDAZOLE [Flagyl] 500 mg PO BID 11/23/16 [History] Allergies meperidine [From Demerol] Allergy (Verified 11/23/16 12:03) Confusion All Systems PM: A 10-system review of systems was performed and is negative for pertinent findings except as documented above in the HPI. - Constitutional Vitals: Temp Pulse Resp BP Pulse Ox 97.5 F L 78 16 112/59 98 11/23/16 08:56 11/23/16 13:17 11/23/16 13:55 11/23/16 13:55 11/23/16 13:17 General appearance: Present: A&O X 3, no acute distress - Neck Neck exam general surgery: Present: supple, trachea midline. Absent: lymphadenopathy - Respiratory Respiratory exam: Present: CTAB. Absent: accessory muscle use, rales, rhonchi, wheezes - Cardiovascular Cardiovascular exam: Present: RRR, +S1, +S2. Absent: diastolic murmur, gallop, rubs, systolic murmur - GI/Abdominal GI/Abdominal exam: Present: normal bowel sounds, soft, no peritoneal signs (Well -healing post hysterectomy surgical incision noted with no dehiscence or drainage). Absent: distended, tenderness - Extremities Exam Extremities exam: Present: warm, radial pulses palpable and symetrical. Absent : calf tenderness, cyanotic, pedal edema - Neurological Exam Neurological exam: Present: CN II-XII intact, oriented X3, no focal deficits. Absent: pronater drift, facial droop, speech deficit - Skin Skin exam: Present: dry, intact Internal Med - H&P Results - Labs CBC & Chem 7: 11/23/16 09:45 11/23/16 09:45 - Impressions CT of the pelvisfrom 2 days ago reveals status post hysterectomy, small amount of air in the bladder consistent with recent bladder catheterization. Small amount of pelvic fluid. Bilateral adrenal nodules.
[2016-11-23] MEDS: 0.9 % Sodium Chloride 1,000 ML IVC SCH ×2 (15:35→22:06)
[2016-11-23] MEDS: Pantoprazole 40 MG VIAL IVP SCH (15:35)
[2016-11-23] MEDS: *HR* OxyCODONE Immed Rel 5 MG TABLET PO PRN ×2 (16:06→22:03)
[2016-11-23] MEDS: *HR* Promethazine 25 MG/ML VIAL IVP PRN (20:16)
--- NOTE | 2016-11-23 20:20 | OB/GYN Consult Note ---
Date of Encounter: 11/23/16 Time of Encounter: 20:15 Assessment and Plan (1) Status post hysterectomy Current Visit: Yes Status: Acute Symptoms and not related to anything surgical since the surgery was 17 days ago (2) Abdominal pain Current Visit: No Status: Acute Qualifiers: Abdominal location: generalized Qualified Code(s): R10.84 - Generalized abdominal pain (3) Nausea vomiting and diarrhea Current Visit: No Status: Acute History of Present Illness Consult date: 11/23/16 Requesting physician: Harry Menendez Reason for consult: other (Status post abdominal hysterectomy 18 days ago, persistent nausea vomiting) Chief complaint: Nausea and vomiting History of present illness: Patient is a 31-year-old female status post abdominal hysterectomy on November 06 who presented to the emergency room today with persistent nausea vomiting. Patient was seen in emergency room earlier in the week with similar complaints day at work the patient up for CAT scans and hydrated her heart rate was not related to the surgery and had a follow-up with her primary web publisher. He did see her yesterday at that time he did not feel there is anything gynecological in nature he did progress incision to make sure there was no seroma but at that time she was not feeling bad. He states after leaving the office she started having persistent nausea vomiting again. He placed her on some Bactrim and some Flagyl prophylactically because of the structures seen around the vaginal cuff but they could not rule out an abscess. Patient states she would took 1 pill but not sure if she can get the down because she started having the emesis. The patient in the emergency room today states that she just cannot keep anything down and is very dehydrated. The emergency room monitor admitted for IV hydration and evaluation for this nausea vomiting. Patient that she feeling a little bit better at this time especially after she states she got something for reflux. He states that she does suffer with gerd. Patient is having normal bowel movements is passing flatus and is really not having any significant abdominal discomfort. Patient states she is having no dysuria urgency frequency states that is still a little bit of effort 20 into the bladder completely that is very common after this type of surgery. Patient overall does not appear to have anything gynecological in nature causing the symptoms. Past Med Surg Social Fam HX - Past Medical History Medical history: GERD Psychiatric history: anxiety - Past Surgical History Surgical History: (2), other (Total abdominal hysterectomy bilateral salpingectomy, bilateral partial salpingectomy, left knee meniscus get to me left hip labral repair cold knife conization) - Social History Smoking Status: Never smoker Smokeless Tobacco Status: No Alcohol use: occasionally Drug use: marijuana - Family History Mother Hx Family Cardiac Disorders: No Hx Family Respiratory Disorders: No Hx Family Cancer: No Hx Family GI Disorders: No Hx Family Genitourinary Disorders: No Hx Family Endocrine Disorder: No Hx Family Musculoskeletal Disorders: No Hx Family Neuromuscular Disorders: No Hx Family Neurologic Disorders: No Hx Family HEENT Disorders: No Hx Family Autoimmune Disorders: No Hx Family Reproductive Disorders: Yes (Tumor in uterus, hysterectomy) Hx Family Psychosocial Disorders: No Hx Family Medical Disorders: No Father Hx Family Cardiac Disorders: Yes (Heart Disease, [place], stents) Hx Family Respiratory Disorders: No Hx Family Cancer: No Hx Family GI Disorders: No Hx Family Genitourinary Disorders: No Hx Family Endocrine Disorder: Yes (DM) Hx Family Musculoskeletal Disorders: No Hx Family Neuromuscular Disorders: No Hx Family Neurologic Disorders: No Hx Family HEENT Disorders: No Hx Family Autoimmune Disorders: No Hx Family Reproductive Disorders: No Hx Family Psychosocial Disorders: No Hx Family Medical Disorders: No - Additional Family History Additional family history: Family history noncontributory at this time Medications and Allergies Biotin 1,000 mcg PO DAILY 07/22/16 [History] Omeprazole [PriLOSEC] 20 mg PO DAILY 07/22/16 [History] hydrOXYzine HCl [Hydroxyzine HCl] 25 mg PO DAILY 07/22/16 [History] Ibuprofen [Motrin] 600 mg PO Q6HR PRN #60 tab 11/08/16 [Rx] Dicyclomine [Bentyl] 10 mg PO QID PRN #15 capsule 11/21/16 [Rx] Metoclopramide [Reglan] 10 mg PO Q6HR PRN #15 tablet 11/21/16 [Rx] Ondansetron ODT [Zofran ODT] 4 mg SL Q6HR PRN #15 tab.rapdis 11/21/16 [Rx] Sulfamethoxazole/Trimeth DS [Bactrim DS] 1 each PO BID 11/23/16 [History] metroNIDAZOLE [Flagyl] 500 mg PO BID 11/23/16 [History] Allergies meperidine [From Demerol] Allergy (Verified 11/23/16 12:03) Confusion Review of Systems All Systems: reviewed and no additional remarkable complaints except as stated Gastrointestinal: nausea, vomiting Exam - Vital Signs Vital signs: Initial Vital Signs Temp Pulse Resp BP Pulse Ox 97.5 F L 118 20 134/91 94 11/23/16 08:56 11/23/16 08:56 11/23/16 08:56 11/23/16 08:56 11/23/16 08:56 - Constitutional Constitutional: well developed, well nourished, no acute distress, average body habitus - Neck Neck exam: full ROM - Lungs Respiratory exam: CTAB - Cardiovascular Cardiovascular exam: RRR - Abdomen Abdomen: Present: bowel sounds normal (Incision is intact mild tenderness around the incision but no erythema or induration noted) Results Result Diagrams: 11/23/16 09:45 11/23/16 09:45 Abnormal lab results MCH 27.4 pg (28.0-33.3) L 11/23/16 09:45 MPV 9.3 fL (9.4-12.4) L 11/23/16 09:45 PT 12.8 Seconds (9.4-12.1) H 11/23/16 09:45 APTT 23.2 Seconds (26.0-36.0) L 11/23/16 09:45 Carbon Dioxide 17 mEq/L (19-29) L 11/23/16 09:45 Creatinine 1.13 mg/dL (0.57-1.11) H 11/23/16 09:45 Est GFR (Non-Af Amer) 53 (> 60) L 11/23/16 09:45 Glucose 171 mg/dL (70-99) H 11/23/16 09:45 Lactic Acid 3.2 mmol/L (0.5-2.2) H 11/23/16 09:45 Urine Ketones 40 mg/dL (Negative) H 11/23/16 11:35 Urine Opiates Screen Positive ng/mL (Kfztum=934) H 11/23/16 11:35 U Marijuana (THC) Screen Positive ng/mL (Cutoff = 50) H 11/23/16 11:35 All other labs normal. Consult Discharge Plan - Plan Referrals: Kathrine Ortega, [employer] [Primary Care Provider] -
[2016-11-24] MEDS: *HR* Promethazine 25 MG/ML VIAL IVP PRN ×2 (03:21→21:45)
[2016-11-24] MEDS: *HR* HYDROmorphone (PF) 1 MG/ML SYRINGE IVP PRN ×4 (03:22→21:53)
[2016-11-24 03:56] LABS: Basophils # 0.1 K/mcL (0.0-0.2); Basophils % 0.6 %; Eosinophils # 0.1 K/mcL (0.0-0.6); Eosinophils % 1.3 %; Hematocrit 34.1 % (35.3-44.9); Hemoglobin 11.1 g/dL (11.5-15.4); Immature Granulocytes % 0.2 % (0-4); Lymphocytes # 3.6 K/mcL (0.6-4.6); Mean Corpuscular HGB Conc 32.6 g/dL (31.6-35.5); Mean Corpuscular Hemoglobin 28.2 pg (28.0-33.3); Mean Corpuscular Volume 86.5 fL (83.0-100.0); Mean Platelet Volume 9.6 fL (9.4-12.4); Monocytes # 0.5 K/mcL (0.0-1.3); Monocytes % 5.6 %; Platelet Count 298 K/mcL (140-400); Red Blood Count 3.94 M/mcL (3.82-4.97); Red Cell Distribution Width 13.1 % (11.5-14.5); Segmented Neutrophils % 53.3 %
[2016-11-24 04:17] LABS: Alanine Aminotransferase 12 Units/L (0-55); Albumin 3.2 g/dL (3.5-5.0); Albumin/Globulin Ratio 1.1 (1.1-2.2); Alkaline Phosphatase 77 Units/L (38-126); Aspartate Amino Transferase 14 Units/L (5-34); BUN/Creatinine Ratio 14 (6-26); Bilirubin,Total 0.5 mg/dL (0.2-1.2); Blood Urea Nitrogen 12 mg/dL (7-20); Calcium 8.3 mg/dL (8.6-10.8); Carbon Dioxide 20 mEq/L (19-29); Chloride 110 mEq/L (98-109); Globulin 2.8 g/dL (2.4-3.5); Glucose 80 mg/dL (70-99); Magnesium 1.9 mg/dL (1.6-2.6); Osmolality,Calculated 283 (280-300); Phosphorous 2.9 mg/dL (2.3-4.7); Potassium 3.4 mEq/L (3.5-4.5); Sodium 137 mEq/L (136-145); eGFR For African Americans > 60 (> 60); eGFR For Non-African Americans > 60 (> 60)
[2016-11-24] MEDS: 0.9 % Sodium Chloride 1,000 ML IVC SCH (04:24)
[2016-11-24] MEDS: Pantoprazole 40 MG VIAL IVP SCH (07:52)
--- NOTE | 2016-11-24 10:33 | Internal Med Progress Note ---
Date of Encounter: 11/24/16 Time of Encounter: 09:15 - Assessment and plan (1) Nausea vomiting and diarrhea Current Visit: No Status: Acute Assessment and plan: improving. Last bout of diarrhea was . She is flatulent. She is tolerating ice chips- advancing her diet as she tolerates. Continue IVF, pain and nausea control. Plain films of chest and abdomen unremarkable for acute processes. ITS Impressions Chest/Abdomen X-ray 11/23/16 09:32 IMPRESSION: 1. No acute cardiopulmonary disease. 2. Unremarkable bowel gas pattern. D/ / 11/23/2016 10:44:45 Arianna Gonzáles MD / yvette Interpreting Provider: Arianna Gonzáles MD (2) Gastroenteritis Current Visit: Yes Status: Acute (3) Hypokalemia Current Visit: Yes Status: Acute Assessment and plan: mild, will replete and trend (4) Status post hysterectomy Current Visit: No Status: Chronic Assessment and plan: approximately 16 days ago. OBGYN have seen the patient and surmise her symptoms are not likely to be related to this surgery. (5) Abdominal pain Current Visit: No Status: Acute Qualifiers: Abdominal location: generalized Qualified Code(s): R10.84 - Generalized abdominal pain (6) Dehydration Current Visit: Yes Status: Acute Assessment and plan: improving. tolerating ice chips- advance diet as she tolerates (7) Acute renal failure Current Visit: Yes Status: Resolved Qualifiers: Acute renal failure type: unspecified Qualified Code(s): N17.9 - Acute kidney failure, unspecified (8) DVT prophylaxis Current Visit: Yes Status: Acute Assessment and plan: Observation patient. Up ad stalin. (9) GERD (gastroesophageal reflux disease) Current Visit: Yes Status: Chronic Assessment and plan: denies current symptoms Qualifiers: Esophagitis presence: without esophagitis Qualified Code(s): K21.9 - Gastro -esophageal reflux disease without esophagitis (10) Adrenal nodule Current Visit: Yes Status: Acute Assessment and plan: Abdominal CT from 11/21/16 revealing bilateral adrenal nodules. Recommend follow -up outpatient. - Subjective Interval history: Patient seen and examined. On examination, patient sitting upright in bed. Patient states she feels a little bit better but states her abdomen is sore. She states she is tolerating ice chips well without nausea or vomiting. She states her pain is currently controlled. - Constitutional Vitals: Temp Pulse Resp BP Pulse Ox 98.2 F 70 14 119/84 99 11/24/16 07:04 11/24/16 07:04 11/24/16 07:04 11/24/16 07:04 11/24/16 07:04 General appearance: Present: A&O X 3, pleasant, no acute distress, answers questions appropriately - Head Head exam: Present: atraumatic, normocephalic - Eye Eye exam: Present: PERRL, conjuntiva pink, sclera anicteric Pupils: Present: PERRL - Neck Neck exam general surgery: Present: supple, trachea midline. Absent: lymphadenopathy - Respiratory Respiratory exam: Present: CTAB. Absent: accessory muscle use, rales, respiratory distress, rhonchi, wheezes - Cardiovascular Cardiovascular exam: Present: RRR, +S1, +S2. Absent: diastolic murmur, gallop, rubs, systolic murmur - GI/Abdominal GI/Abdominal exam: Present: normal bowel sounds, soft, tenderness, no peritoneal signs. Absent: distended - Extremities Exam Extremities exam: Present: warm, radial pulses palpable and symetrical. Absent : calf tenderness, cyanotic, pedal edema - Neurological Exam Neurological exam: Present: alert, CN II-XII intact, oriented X3, no focal deficits, strengths equal and symetr throughout. Absent: pronater drift, facial droop, speech deficit - Skin Skin exam: Present: dry, intact, pallor, warm Internal Medicine: Result - Labs CBC & Chem 7: 11/24/16 03:21 11/24/16 03:21 Labs: Short CBC 11/24/16 Range/Units 03:21 WBC 9.3 (4.3-11.1) K/mcL Hgb 11.1 L (11.5-15.4) g/dL Hct 34.1 L (35.3-44.9) % Plt Count 298 (140-400) K/mcL Neutrophils # 5.0 (1.6-8.9) K/mcL BMP 11/24/16 03:21 Sodium 137 Potassium 3.4 L Chloride 110 H Carbon Dioxide 20 BUN 12 Creatinine 0.85 Glucose 80 Calcium 8.3 L Liver Function 11/24/16 Range/Units 03:21 Total Bilirubin 0.5 (0.2-1.2) mg/dL AST 14 (5-34) Units/L ALT 12 (0-55) Units/L Alkaline Phosphatase 77 (38-126) Units/L Albumin 3.2 L (3.5-5.0) g/dL - ABG Interpretation ABG results: PT/INR, D-dimer PT 12.8 Seconds (9.4-12.1) H 11/23/16 09:45 Consult Discharge Plan - Plan Referrals: Kathrine Ortega, [employer]ER [Primary Care Provider] -
[2016-11-24] MEDS: *HR* OxyCODONE Immed Rel 5 MG TABLET PO PRN (11:46)
[2016-11-24] MEDS ORDERED: Mag Hydrox/Al Hydrox/Simeth 30 ML UDC PO PRN (14:32)
[2016-11-25 04:57] LABS: BUN/Creatinine Ratio 8 (6-26); Blood Urea Nitrogen 7 mg/dL (7-20); Calcium 8.7 mg/dL (8.6-10.8); Carbon Dioxide 23 mEq/L (19-29); Chloride 106 mEq/L (98-109); Glucose 77 mg/dL (70-99); Osmolality,Calculated 281 (280-300); Sodium 137 mEq/L (136-145); eGFR For African Americans > 60 (> 60); eGFR For Non-African Americans > 60 (> 60)
[2016-11-25 07:34] VITALS: BP 120/69
[2016-11-25] MEDS: Pantoprazole 40 MG VIAL IVP SCH (07:44)
[2016-11-25] MEDS: *HR* OxyCODONE Immed Rel 5 MG TABLET PO PRN (07:45)
--- NOTE | 2016-11-25 11:11 | Discharge Summary ---
Date of Encounter: 11/25/16 Time of Encounter: 09:00 - Discharge Diagnosis (1) Nausea vomiting and diarrhea Priority: Primary Status: Resolved (2) Gastroenteritis Priority: Primary Status: Acute (3) Hypokalemia Priority: Primary Status: Resolved (4) Status post hysterectomy Priority: Secondary Status: Chronic (5) Abdominal pain Priority: Primary Status: Acute Comments: controlled at time of discharge. Able to tolerate a regular diet Qualifiers: Abdominal location: generalized Qualified Code(s): R10.84 - Generalized abdominal pain (6) Dehydration Priority: Primary Status: Resolved (7) Acute renal failure Priority: Primary Status: Resolved Qualifiers: Acute renal failure type: unspecified Qualified Code(s): N17.9 - Acute kidney failure, unspecified (8) DVT prophylaxis Priority: Primary Status: Acute Comments: Observation patient. Up ad stalin. (9) GERD (gastroesophageal reflux disease) Priority: Secondary Status: Chronic Comments: denied current symptoms Qualifiers: Esophagitis presence: without esophagitis Qualified Code(s): K21.9 - Gastro -esophageal reflux disease without esophagitis (10) Adrenal nodule Priority: Primary Status: Acute Comments: Abdominal CT from 11/21/16 revealing bilateral adrenal nodules. Recommend follow -up outpatient. - Discharge Medications Prescriptions: OxyCODONE Immed Rel [Roxicodone 5 MG] 5 mg PO Q6HR PRN #15 tablet PRN Reason: Pain Home Medications: Biotin 1,000 mcg PO DAILY 07/22/16 [History] Omeprazole [PriLOSEC] 20 mg PO DAILY 07/22/16 [History] hydrOXYzine HCl [Hydroxyzine HCl] 25 mg PO DAILY 07/22/16 [History] Ibuprofen [Motrin] 600 mg PO Q6HR PRN #60 tab 11/08/16 [Rx] Dicyclomine [Bentyl] 10 mg PO QID PRN #15 capsule 11/21/16 [Rx] Metoclopramide [Reglan] 10 mg PO Q6HR PRN #15 tablet 11/21/16 [Rx] Ondansetron ODT [Zofran ODT] 4 mg SL Q6HR PRN #15 tab.rapdis 11/21/16 [Rx] Sulfamethoxazole/Trimeth DS [Bactrim Ds] 1 each PO BID 11/23/16 [History] metroNIDAZOLE [Flagyl] 500 mg PO BID 11/23/16 [History] OxyCODONE Immed Rel [Roxicodone 5 MG] 5 mg PO Q6HR PRN #15 tablet 11/25/16 [Rx] Allergies/Adverse Reactions: Allergies meperidine [From Demerol] Allergy (Verified 11/23/16 12:03) Confusion Date of admission: 11/23/16 13:30 Primary care physician: Kathrine Ortega CNP Consults: 11/23/16 14:32 Consult to Physician [CONS] Routine Consulting Provider: Aubrey Galeas Reason for Consult: Recent hysterectomy, abdominal pain, fluid collection. Time Notified: 14:33 Call Completed: Yes Discharging clinician: Emi Ibarra Anticipated date of discharge: 11/25/16 - Patient Status Disposition: Home, Self-Care Condition: Good Functional capacity at discharge: independent ambulation Overall status at discharge: patient is progressing back to baseline - Discharge Instructions Follow Up With: Kathrine Ortega CNP [Primary Care Provider] - [employer]VIEW [employer] [facility] [Provider Group] Additional Instructions: Follow-up with her primary care provider within one to 2 weeks, follow-up with SALES REVIEW CLERK within 1-2 weeks - Diet and Activity Activity: increase activity as tolerated, return to work once cleared by your PCP/specialist Diet: regular diet Hospital course: Ms. Holden is a 41 year old female with past medical history of GERD and recent hysterectomy approximately 15 days prior to presentation. She presented to the emergency department with a chief complaint of nausea and vomiting. She states that 2 days prior to arrival, she started have sudden onset of nausea, vomiting , diarrhea, and epigastric abdominal pain. Patient presented on that day, 2 days prior to this presentation, was seen and evaluated in the emergency department. Abdominal CT at that time showed a small amount of pelvic fluid and she was treated symptomatically and discharged home. She saw her SALES REVIEW CLERK provider on the day prior to presentation who prescribed her with antibiotics she was unable to take his antibiotics due to profuse vomiting. She continued to have nausea, vomiting, and abdominal pain and presented to the hospital again. Patient stating that the diarrhea had resolved and that she had not had a bowel movement for the 2 days prior to presentation. She also reported epigastric abdominal pain, severe, crampy in nature and associated with severe, nonbloody vomiting. Patient also reported decreased by mouth intake and decreased urination on the 2 days prior to presentation. Workup in the emergency department revealing acute kidney injury and hyperkalemia. Patient was admitted to the hospitalist service for further evaluation and management. Chest and abdominal x-rays unremarkable for acute processes. Patient was admitted and observed over the course of 2 nights and received IV fluids, antibiotics, and pain management. She was able to tolerate a regular diet on day of discharge and her nausea vomiting and diarrhea had resolved. Her hypokalemia and acute kidney injury also resolved. SALES REVIEW CLERK was brought on board during this admission who surmise her symptoms were not likely to be related to her surgery and they cleared her for outpatient follow-up. She was discharged home in stable condition with close outpatient follow-up recommended. Of note, her abdominal pelvic CT from her most recent visit revealed bilateral adrenal nodules, follow-up outpatient with primary care provider. ITS Impressions Chest/Abdomen X-ray 11/23/16 09:32 IMPRESSION: 1. No acute cardiopulmonary disease. 2. Unremarkable bowel gas pattern. D/ / 11/23/2016 10:44:45 Arianna Gonzáles MD / yvette Interpreting Provider: Arianna Gonzáles MD abd/pelvis with IV; no oral impression from 11/21/16: Changes of recent hysterectomy via low transverse incision with small fluid collection adjacent to the vaginal cuff, which may reflect postoperative seroma or abscess at the patient has infectious symptoms. Indeterminate bilateral adrenal nodules. If the patient has no prior imaging and there is no history of malignancy, follow- up adrenal mass cortical CT or MRI is recommended at one year. If the patient has a history of malignancy, short interview nonemergent CT or MR follow-up would be recommended. - Time Spent with Patient Total time spent providing and/or coordinating discharge services: - Constitutional Vitals: Temp Pulse Resp BP Pulse Ox 98.9 F 73 15 120/69 97 11/25/16 07:33 11/25/16 07:33 11/25/16 07:33 11/25/16 07:33 11/25/16 07:33 General appearance: Present: A&O X 3, pleasant, no acute distress, answers questions appropriately - Head Head exam: Present: atraumatic, normocephalic - Eye Eye exam: Present: PERRL, conjuntiva pink, sclera anicteric Pupils: Present: PERRL - Neck Neck exam general surgery: Present: supple, trachea midline. Absent: lymphadenopathy - Respiratory Respiratory exam: Present: CTAB. Absent: accessory muscle use, rales, respiratory distress, rhonchi, wheezes - Cardiovascular Cardiovascular exam: Present: RRR, +S1, +S2. Absent: diastolic murmur, gallop, rubs, systolic murmur - GI/Abdominal GI/Abdominal exam: Present: normal bowel sounds, soft, tenderness, no peritoneal signs. Absent: distended - Extremities Exam Extremities exam: Present: warm, radial pulses palpable and symetrical. Absent : calf tenderness, cyanotic, pedal edema - Neurological Exam Neurological exam: Present: alert, CN II-XII intact, normal gait, oriented X3, no focal deficits, strengths equal and symetr throughout. Absent: pronater drift, facial droop, speech deficit - Skin Skin exam: Present: dry, intact, normal color, pallor, warm
--- NOTE | 2016-11-25 16:37 | Electrocardiograph Report ---
[address] [address] Test Date: 2016-11-23 Pat Name: Mirtha Holden Department: 102 Room: 3B16 Gender: F Assignment Manager: Ryan : 1975 Requested By: Glenroy Hitchcock Order Number: [id number] Reading MD: Tremayne Umana MD Measurements Intervals [employer] Rate: 69 P: 46 NV: 140 QRS: 41 QRSD: 80 T: 29 QT: 427 QTc: 446 Interpretive Statements SINUS RHYTHM Electronically Signed On 11-25-2016 16:35:43 EDT by Tremayne Umana MD
== END 2016-11-25 13:19 | disposition home or self-care (01) ==
LOC: 3BNU 08:55 → EMEROO 08:55 → 3BNU 14:12
PROVIDERS: ADMIT Internal Medicine; ATTEND Nurse Practitioner Family

== ENCOUNTER 2017-04-30 21:33 | Observation (INO) ==
[2017-04-30] MEDS ORDERED: 0.9 % Sodium Chloride 1,000 ML IVC ONE (21:46)
[2017-04-30] MEDS ORDERED: *HR* Promethazine 25 MG/ML VIAL IVP ONE (21:46)
[2017-04-30] MEDS ORDERED: Hyoscyamine 0.5 MG/ML MLS IVP ONE (21:46)
--- NOTE | 2017-04-30 22:10 | Emergency Department Note ---
Disposition Clinical Impression: Nausea and vomiting Qualifiers: Vomiting type: unspecified Vomiting Intractability: intractable Qualified Code( s): R11.2 - Nausea with vomiting, unspecified Disposition: Admitted As Inpatient Condition: Good Referrals: Kathrine Ortega CNP [Primary Care Provider] - Forms: ED Satisfaction Letter, Work/School Release Time of Disposition: 00:44 General Adult HPI - General Chief complaint: ED Abdominal Pain Stated complaint: Abd Pain Time Seen by Provider: 04/30/17 21:38 Source: patient, family Mode of arrival: ambulatory Limitations: no limitations Nursing Notes Reviewed: Yes Vital Signs Reviewed: Yes - History of Present Illness HPI Narrative: 41-year-old female presenting with nausea, vomiting and diarrhea. Patient states she has multiple episodes like this frequently and has come to the emergency Department many times for this. She is currently being worked up in [place] by a GI physician for IBS. Patient states around 5 PM she started having abdominal cramping and had 5 episodes of diarrhea. Then she started having vomiting. She tried to take in oral Phenergan but vomited that as well. Patient also tried rectal Phenergan that she had diarrhea and it came out. Patient states this episode is just like every other one of her episodes that she has been seen for. Patient's last visit she received IV Phenergan and IV fluids and she states this helped her. Patient denies any fever, chest pain or shortness of breath. Patient is otherwise healthy. Pain Scale: 8 - Related Data Home Medications Medication Instructions Recorded Confirmed Biotin 1,000 mcg PO DAILY 07/22/16 11/23/16 Omeprazole [PriLOSEC] 20 mg PO DAILY 07/22/16 11/23/16 hydrOXYzine HCl [Hydroxyzine HCl] 25 mg PO DAILY 07/22/16 11/23/16 Sulfamethoxazole/Trimeth DS 1 each PO BID 11/23/16 11/23/16 [Bactrim Ds] metroNIDAZOLE [Flagyl] 500 mg PO BID 11/23/16 11/23/16 Previous Rx's Medication Instructions Recorded Ibuprofen [Motrin] 600 mg PO Q6HR PRN #60 tab 11/08/16 Dicyclomine [Bentyl] 10 mg PO QID PRN #15 capsule 11/21/16 Metoclopramide [Reglan] 10 mg PO Q6HR PRN #15 tablet 11/21/16 Ondansetron ODT [Zofran ODT] 4 mg SL Q6HR PRN #15 tab.rapdis 11/21/16 OxyCODONE Immed Rel [Roxicodone 5 5 mg PO Q6HR PRN #15 tablet 11/25/16 MG] HYDROcodone/Acet 10/325 mg [[place] 1 tab PO Q6HR PRN #12 tab 01/01/17 10-325 mg] OxyCODONE/APAP 10/325 [Percocet 1 each PO Q6HR PRN #12 tablet 01/20/17 10/325 MG] Promethazine [Phenergan] 25 mg RC Q8HR PRN #12 supp.rect 01/20/17 HYDROcodone/Acet 5/325 mg [[place] 1 tab PO Q6H PRN #10 tab 01/26/17 5-325 mg] Promethazine [Phenergan] 12.5 mg RC Q6HR PRN #20 supp.rect 01/26/17 HYDROcodone/Acet 5/325 mg [[place] 1 tab PO Q6H PRN #8 tab 02/10/17 5-325 mg] Allergies Allergy/AdvReac Type Severity Reaction Status Date / Time meperidine [From Demerol] Allergy Confusion Verified 02/10/17 01:11 All systems ED: reviewed and negative except as stated. Constitutional: Denies: fever, chills Eyes: Reports: as per HPI ENT ED: Reports: as per HPI Cardiovascular: Denies: chest pain, palpitations Respiratory: Denies: cough, dyspnea, wheezes Gastrointestinal: Reports: abdominal pain, nausea, vomiting, diarrhea Genitourinary: Reports: as per HPI Musculoskeletal: Reports: as per HPI Integumentary: Reports: as per HPI Neurological: Reports: as per HPI Psychiatric: Reports: as per HPI Endocrine: Reports: as per HPI Hematological/Lymphatic: Reports: as per HPI Allergic/Immunologic: Reports: as per HPI Past Medical History - Past Medical History Attestation: Yes The following information was validated with the patient. Medical history: Reports: GERD Surgical history: Reports: (2), other (Total abdominal hysterectomy bilateral salpingectomy, bilateral partial salpingectomy, left knee meniscus get to me left hip labral repair cold knife conization) Psychiatric history: Reports: anxiety - Social History Smoking Status: Former smoker Smokeless Tobacco Status: No Alcohol use: Reports: rarely Drug use: Reports: marijuana Physical Exam - General Limitations: no limitations General appearance: alert, in no apparent distress - Head Head exam: atraumatic, normocephalic, normal inspection - Eye Eye exam: Present: normal appearance. Absent: scleral icterus, conjunctival injection - Chest Chest inspection: Present: normal inspection, symmetric chest wall rise. Absent : tenderness, rash - Respiratory Respiratory exam: Present: normal lung sounds bilaterally. Absent: respiratory distress, wheezes - Cardiovascular Cardiovascular exam: Present: regular rate, normal rhythm, normal heart sounds - Abdominal Exam Abdominal exam: Present: soft, tenderness, normal bowel sounds. Absent: distention, guarding, rebound, rigidity, organomegaly, heel tap sign, Jackson's sign, Rovsing's sign, tenderness at McBurney's Point Abdominal tenderness: Present: diffuse, moderate - Extremities Exam Extremities exam: Present: normal inspection, full ROM - Back Exam Back exam: Present: normal inspection. Absent: CVA tenderness (R), CVA tenderness (L) - Neurological Exam Neurological exam: Present: alert, oriented X3 - Psychiatric Psychiatric exam: Present: normal affect, normal mood - Skin Skin exam: Present: warm, intact Course Course Narrative: 41-year-old female presenting to the emergency department complaining of abdominal pain, nausea and vomiting. Patient has been seen multiple times in the ER for this complaint in the past. Patient states the symptoms are the exact same as all her previous episodes. We will provide her with IV Phenergan , Levsin and fluids. We will also provide her with Ativan. Patient's alert and oriented 3 in the room with stable vital signs at this time. She agrees with this plan. - Reevaluation(s) Reevaluation #1: Patient states she still having abdominal pain after multiple different medications given to her including dilaudid, Levsin, Zofran, Phenergan, Ativan. Patient states she is concerned that if she is discharged home she will come back to the emergency department a few hours for increasing abdominal pain. They have decided to admit the patient at this time for intractable nausea along with cyclic vomiting. Patient alert and oriented 3 in the room and stable vital signs. We have paged the hospitalist at this time. Time: 00:24 Reevaluation #2: Dr queen accepts the patient Time: 00:43 Vital Signs Temperature 97.5 F L 04/30/17 21:34 Pulse Rate 88 04/30/17 21:34 Respiratory Rate 20 04/30/17 21:34 Blood Pressure 149/69 04/30/17 21:34 O2 Sat by Pulse Oximetry 96 04/30/17 21:34 Temperature 97.5 F L 04/30/17 21:34 Pulse Rate 89 04/30/17 23:00 Respiratory Rate 16 04/30/17 23:00 Blood Pressure 128/78 04/30/17 23:00 O2 Sat by Pulse Oximetry 96 04/30/17 23:00 Oxygen Delivery Oxygen Delivery Room Air Medical Decision Making - Lab Data Result diagrams: 05/01/17 00:28 Lab Results 05/01/17 Range/Units 00:28 WBC 6.5 (4.3-11.1) K/mcL RBC 4.61 (3.82-4.97) M/mcL Hgb 12.6 (11.5-15.4) g/dL Hct 37.0 (35.3-44.9) % MCV 80.3 L (83.0-100.0) fL MCH 27.3 L (28.0-33.3) pg MCHC 34.1 (31.6-35.5) g/dL RDW 13.8 (11.5-14.5) % Plt Count 229 (140-400) K/mcL MPV 9.7 (9.4-12.4) fL Immature Gran % 0.3 (0-4) % Seg Neutrophils % 87.3 % Lymphocytes % 10.7 % Monocytes % 1.5 % Eosinophils % 0.0 % Basophils % 0.2 % Neutrophils # 5.7 (1.6-8.9) K/mcL Lymphocytes # 0.7 (0.6-4.6) K/mcL Monocytes # 0.1 (0.0-1.3) K/mcL Eosinophils # 0.0 (0.0-0.6) K/mcL Basophils # 0.0 (0.0-0.2) K/mcL
[2017-04-30] MEDS ORDERED: *HR* LORazepam 2 MG/ML VIAL IVP ONE (22:14)
--- NOTE | 2017-04-30 22:16 | Emergency Department Note ---
START Narrative - START START: I examined this patient and my medical decision-making was reviewed with the Resident Physician. I agree with the documented findings, disposition and treatment plan as described except to the extent set forth below. 41 female presents to [facility] for abdominal pain and vomiting. History of this since November of this year. Has multiple attacks per month. Follows with GI in [place]. They feel she is being evaluated for irritable bowel. Patient seems to have a cyclical vomiting type syndrome. She states all the CAT scans of her abdomen and pelvis since November have been negative. She states her episode tonight is exactly the same as she has had in the past. Phenergan and Bentyl on a regular basis. We will give her some IV fluids and antiemetics and some Ativan to help with her symptoms.
[2017-04-30] MEDS ORDERED: Ondansetron 4 MG/2 ML VIAL IVP PRN (23:17)
[2017-04-30] MEDS ORDERED: *HR* HYDROmorphone (PF) 1 MG/ML SYRINGE IVP ONE (23:17)
[2017-05-01 00:36] LABS: Basophils % 0.2 %; Hemoglobin 12.6 g/dL (11.5-15.4); Immature Granulocytes % 0.3 % (0-4); Lymphocytes # 0.7 K/mcL (0.6-4.6); Lymphocytes % 10.7 %; Mean Corpuscular HGB Conc 34.1 g/dL (31.6-35.5); Mean Corpuscular Hemoglobin 27.3 pg (28.0-33.3); Mean Corpuscular Volume 80.3 fL (83.0-100.0); Mean Platelet Volume 9.7 fL (9.4-12.4); Monocytes # 0.1 K/mcL (0.0-1.3); Monocytes % 1.5 %; Neutrophils # 5.7 K/mcL (1.6-8.9); Platelet Count 229 K/mcL (140-400); Red Blood Count 4.61 M/mcL (3.82-4.97); Red Cell Distribution Width 13.8 % (11.5-14.5); Segmented Neutrophils % 87.3 %
[2017-05-01 00:51] LABS: Alanine Aminotransferase 13 Units/L (0-55); Albumin 3.5 g/dL (3.5-5.0); Alkaline Phosphatase 103 Units/L (38-126); Aspartate Amino Transferase 13 Units/L (5-34); BUN/Creatinine Ratio 11 (6-26); Bilirubin,Total 0.5 mg/dL (0.2-1.2); Blood Urea Nitrogen 9 mg/dL (7-20); Calcium 8.3 mg/dL (8.6-10.8); Carbon Dioxide 21 mEq/L (19-29); Chloride 107 mEq/L (98-109); Globulin 3.4 g/dL (2.4-3.5); Glucose 138 mg/dL (70-99); Lipase 19 Units/L (8-78); Osmolality,Calculated 283 (280-300); Potassium 3.8 mEq/L (3.5-4.5); Sodium 136 mEq/L (136-145); Total Protein 6.9 g/dL (6.0-8.3); eGFR For African Americans > 60 (> 60); eGFR For Non-African Americans > 60 (> 60)
[2017-05-01 00:57] LABS: % Iron Saturation 14 % (15-50); Iron 49 mcg/dL (50-170); Transferrin 258 mg/dL (180-382)
--- NOTE | 2017-05-01 01:49 | Internal Med History&Physical ---
<Marce Hudson - Last Filed: 05/01/17 05:17> Date of Encounter: 05/01/17 Time of Encounter: 01:46 Assessment and Plan (1) Intractable nausea and vomiting Current visit: No Status: Acute Nausea and vomiting since 5 PM. Patient has had many episodes of this in the past she has been admitted and given IV Phenergan and fluids and then discharged home. No hematemesis or melena. Patient has a gastroenterologists and [place] who is treating her for IBS. She tried bentyl and suppository Phenergan home without relief. Most likely related to patient's IBS but also have to consider cyclic vomiting syndrome since the patient reported that she smokes marijuana. She reports now occasionally. Vital signs stable, afebrile. Minimal diffuse abdominal tenderness, no guarding or rebound. Patient given Dilaudid, Ativan, Zofran, hyoscyamine, IV fluids in ED. Zofran PRN Phenergan PRN Hyoscyamine given (2 doses of 0.5mg given so far, max of 1.5 mg/ day) clear liquids IV fluids if patient cannot tolerate clear liquids Qualifiers: Vomiting type: unspecified Qualified Code(s): R11.2 - Nausea with vomiting , unspecified (2) Abdominal pain Current visit: No Status: Acute Abdominal cramping most likely IBS minimal diffuse abdominal tenderness, no guarding a rebound hyoscyamine given Qualifiers: Abdominal location: unspecified location Qualified Code(s): R10.9 - Unspecified abdominal pain (3) GERD (gastroesophageal reflux disease) Current visit: No Status: Chronic Patient has a history of GERD, treated with Prilosec Qualifiers: Esophagitis presence: without esophagitis Qualified Code(s): K21.9 - Gastro -esophageal reflux disease without esophagitis Internal Medicine - H&P: HPI Chief complaint: intractable vomiting Admitted From: Home Plans for Post Hospital Care: Home History of present illness: Ms. Holden is a 41 year old female with past medical history of GERD and anxiety presented to [facility] complaining of intractable vomiting that began at 5 PM this evening. She has had 5-6 diarrhea episodes and about 15 vomiting episodes. She reports that this is happened many times since 11/21/2016 and has been admitted on multiple occasions. She reports that IV Phenergan, Dilaudid, Bentyl seem to help in the past. She sees a psychologist educational in [place] Dr. Dawson who believes that this is IBS. She tried treating herself with potential and suppository Phenergan without success. She reports that she is omitted many times today. She states that she has abdominal cramping, diarrhea occasional chills and lightheadedness. She denies fever, chest pain, shortness of breath, palpitations, cough, hematochezia, hematemesis, melena, syncope. She denies travel, eating new foods, sick contacts, recent illness. In the ED she received Dilaudid, IV fluids, Ativan, Phenergan, Zofran, hyoscyamine. Afebrile, vital stable. She is a full code Past Med Surg Social Fam HX - Past Medical History Medical history: GERD Psychiatric history: anxiety - Past Surgical History Surgical History: (2), orthopedic, other, other (Total abdominal hysterectomy bilateral salpingectomy, bilateral partial salpingectomy, left knee meniscus get to me left hip labral repair cold knife conization) - Social History Smoking Status: Former smoker Smokeless Tobacco Status: No Alcohol use: rarely Drug use: marijuana Occupational status: employed Current living situation: Home Activity Level: Independent ambulation Recent Out of Country Travel Within the Last 8 Weeks: No - Family History Mother Hx Family Cardiac Disorders: No Hx Family Respiratory Disorders: No Hx Family Cancer: No Hx Family GI Disorders: No Hx Family Endocrine Disorder: No Hx Family Neuromuscular Disorders: No Hx Family Neurologic Disorders: No Hx Family HEENT Disorders: No Hx Family Autoimmune Disorders: No Father Hx Family Cardiac Disorders: Yes (Heart Disease, DC, stents) Hx Family Respiratory Disorders: No Hx Family Cancer: Yes (adrenal cancer) Hx Family GI Disorders: No Hx Family Endocrine Disorder: Yes (DM) Hx Family Neuromuscular Disorders: No Hx Family Neurologic Disorders: No Hx Family HEENT Disorders: No Hx Family Autoimmune Disorders: No Internal Medicine - H&P: Meds Biotin 1,000 mcg PO DAILY 07/22/16 [History] Omeprazole [PriLOSEC] 20 mg PO DAILY 07/22/16 [History] hydrOXYzine HCl [Hydroxyzine HCl] 25 mg PO DAILY 07/22/16 [History] Ibuprofen [Motrin] 600 mg PO Q6HR PRN #60 tab 06/02/17 [Rx] Dicyclomine [Bentyl] 10 mg PO QID PRN #15 capsule 11/21/16 [Rx] Metoclopramide [Reglan] 10 mg PO Q6HR PRN #15 tablet 11/21/16 [Rx] Ondansetron ODT [Zofran ODT] 4 mg SL Q6HR PRN #15 tab.rapdis 11/21/16 [Rx] Sulfamethoxazole/Trimeth DS [Bactrim Ds] 1 each PO BID 11/23/16 [History] metroNIDAZOLE [Flagyl] 500 mg PO BID 11/23/16 [History] OxyCODONE Immed Rel [Roxicodone 5 MG] 5 mg PO Q6HR PRN #15 tablet 11/25/16 [Rx] HYDROcodone/Acet 10/325 mg [[place] 10-325 mg] 1 tab PO Q6HR PRN #12 tab 01/01/17 [Rx] OxyCODONE/APAP 10/325 [Percocet 10/325 MG] 1 each PO Q6HR PRN #12 tablet [Rx] Promethazine [Phenergan] 25 mg RC Q8HR PRN #12 supp.rect 01/20/17 [Rx] HYDROcodone/Acet 5/325 mg [[place] 5-325 mg] 1 tab PO Q6H PRN #10 tab 01/26/17 [Rx ] Promethazine [Phenergan] 12.5 mg RC Q6HR PRN #20 supp.rect 01/26/17 [Rx] HYDROcodone/Acet 5/325 mg [[place] 5-325 mg] 1 tab PO Q6H PRN #8 tab 02/10/17 [Rx] 3 Allergy/AdvReac Type Severity Reaction Status Date / Time meperidine [From Demerol] Allergy Confusion Verified 02/10/17 01:11 All Systems PM: A 10-system review of systems was performed and is negative for pertinent findings except as documented above in the HPI. - Constitutional Constitutional: chills, no fever(s), no night sweats, no weakness - EENT Eyes: no blurry vision, no change in vision Nose, mouth and throat: no dysphagia, no epistaxis, no sore throat - Cardiovascular Cardiovascular ROS IM: lightheadedness, no chest pain, no palpitations, no syncope - Respiratory Respiratory: no cough, no dyspnea, no hemoptysis, no wheezing - Gastrointestinal Gastrointestinal: abdominal pain, cramping, diarrhea, nausea, vomiting, no coffee ground emesis, no hematemesis, no hematochezia, no melena, no odynophagia - Genitourinary Genitourinary: no dysuria - Musculoskeletal Musculoskeletal ROS IM: no muscle cramps, no muscle weakness - Integumentary Integumentary IM: no rash - Neurological Neurological ROS: no frequent falls, no headache(s), no loss of vision - Constitutional Vitals: Temp Pulse Resp BP Pulse Ox 97.5 F L 95 16 126/78 96 04/30/17 21:34 05/01/17 00:58 05/01/17 01:04 05/01/17 01:04 05/01/17 00:58 General appearance: Present: A&O X 3, pleasant. Absent: no acute distress - Head Head exam: Present: atraumatic, normocephalic - Eye Eye exam: Present: conjuntiva pink. Absent: scleral icterus - Neck Neck exam general surgery: Present: full ROM. Absent: tenderness - Respiratory Respiratory exam: Present: CTAB. Absent: rales, rhonchi, wheezes - Cardiovascular Cardiovascular exam: Present: RRR. Absent: clicks, +S1, +S2 - GI/Abdominal GI/Abdominal exam: Present: hypoactive bowel sounds, soft, tenderness. Absent: distended, firm, guarding, rebound - Extremities Exam Extremities exam: Present: full ROM, normal inspection. Absent: calf tenderness - Psychiatric Psychiatric exam: Present: normal mood. Absent: anxious - Skin Skin exam: Present: dry, intact Internal Med - H&P Results - Labs CBC & Chem 7: 05/01/17 00:28 05/01/17 00:28 <Harry Menendez - Last Filed: 05/01/17 06:53> Date of Encounter: 04/30/17 Internal Medicine - H&P: HPI History of present illness: Ms. Holden is a 41 year old female All Systems PM: A 10-system review of systems was performed and is negative for pertinent findings except as documented above in the HPI. - Constitutional Vitals: Temp Pulse Resp BP Pulse Ox 97.8 F 90 15 112/69 97 05/01/17 01:57 05/01/17 01:57 05/01/17 01:57 05/01/17 01:57 05/01/17 01:57 Internal Med - H&P Results - Labs CBC & Chem 7: 05/01/17 00:28 05/01/17 00:28 - Attending Attestation I conducted a face to face diagnostic evaluation of this patient and my medical decision-making was reviewed with the Resident Physician, Dr. Marce Hudson. I agree with the documented findings, disposition and treatment plan as described except to the extent set forth below: Date of service is 04/30/2017 Per review of records back in the summer H&P states that patient used marijuana nightly before sleep. She does tell me that she continues to use marijuana at bedtime. She says that she uses rarely. We will provide supportive care with IV fluids, IV Zofran and Phenergan. I suspect cannabinoid hyperemesis syndrome and I have advised the patient to completely stop using marijuana.
[2017-05-01] MEDS ORDERED: Naloxone 0.4 MG/ML INJ IVP PRN (01:57)
[2017-05-01] MEDS ORDERED: *HR* Promethazine 25 MG/ML VIAL IVP PRN (01:57)
[2017-05-01] MEDS ORDERED: Hyoscyamine 0.5 MG/ML MLS IVP ONE (02:06)
[2017-05-01] MEDS: 0.9 % Sodium Chloride 1,000 ML IVC SCH ×2 (10:42→21:34)
--- NOTE | 2017-05-01 15:31 | Internal Med Progress Note ---
Date of Encounter: 05/01/17 Time of Encounter: 15:28 - Assessment and plan (1) Abdominal pain Current Visit: No Status: Acute Qualifiers: Abdominal location: unspecified location Qualified Code(s): R10.9 - Unspecified abdominal pain (2) Intractable nausea and vomiting Current Visit: No Status: Acute Qualifiers: Vomiting type: unspecified Qualified Code(s): R11.2 - Nausea with vomiting , unspecified (3) GERD (gastroesophageal reflux disease) Current Visit: No Status: Chronic Qualifiers: Esophagitis presence: without esophagitis Qualified Code(s): K21.9 - Gastro -esophageal reflux disease without esophagitis - Subjective Interval history: Admitted for intractable nausea and vomiting/abdominal pain. Suspected to have irritable bowel disease/cyclical vomiting. She has not had any EGD or colonoscopy at but had an ultrasound and HIDA scan all of her gallbladder which is apparently okay as well as CT abdomen. She is on multiple psych medication as well as him pain and nausea medicines. Patient seemed quite upset and as her powerhouse mechanic helper ordered 24-hour urine collection for 5 HIAA metanephrines VMA and Porphyrins. Same is ordered. We will change her management after she is done with urine collection. Definitely need EGD and colonoscopy as part of workup for cyclical vomiting as well as brain MRI which will be ordered. - Constitutional Vitals: Temp Pulse Resp BP Pulse Ox 98.7 F 73 16 99/63 98 05/01/17 14:22 05/01/17 14:22 05/01/17 14:22 05/01/17 14:22 05/01/17 14:22 General appearance: Present: A&O X 3, answers questions appropriately. Absent: no acute distress - Head Head exam: Present: atraumatic, normocephalic - Eye Eye exam: Present: PERRL, conjuntiva pink, sclera anicteric Pupils: Present: PERRL - Neck Neck exam general surgery: Present: supple, trachea midline. Absent: lymphadenopathy - Respiratory Respiratory exam: Present: CTAB. Absent: accessory muscle use, rales, rhonchi, wheezes - Cardiovascular Cardiovascular exam: Present: RRR, +S1, +S2. Absent: diastolic murmur, gallop, rubs, systolic murmur - GI/Abdominal GI/Abdominal exam: Present: normal bowel sounds, soft, tenderness, no peritoneal signs. Absent: distended - Extremities Exam Extremities exam: Present: warm, radial pulses palpable and symmetrical. Absent : calf tenderness, cyanotic, pedal edema - Neurological Exam Neurological exam: Present: CN II-XII intact, oriented X3, no focal deficits. Absent: pronater drift, facial droop, speech deficit - Skin Skin exam: Present: dry, intact Internal Medicine: Result - Labs CBC & Chem 7: 05/01/17 00:28 05/01/17 00:28 Consult Discharge Plan - Plan Referrals: Kathrine Ortega, [employer] [Primary Care Provider] -
[2017-05-01] MEDS: Acetaminophen 325 MG TABLET PO PRN (21:33)
[2017-05-02 06:13] LABS: Basophils % 0.7 %; Eosinophils # 0.1 K/mcL (0.0-0.6); Eosinophils % 2.4 %; Hematocrit 37.1 % (35.3-44.9); Hemoglobin 12.1 g/dL (11.5-15.4); Immature Granulocytes % 0.2 % (0-4); Lymphocytes # 2.5 K/mcL (0.6-4.6); Lymphocytes % 45.3 %; Mean Corpuscular HGB Conc 32.6 g/dL (31.6-35.5); Mean Corpuscular Hemoglobin 26.7 pg (28.0-33.3); Mean Corpuscular Volume 81.9 fL (83.0-100.0); Mean Platelet Volume 9.8 fL (9.4-12.4); Monocytes # 0.3 K/mcL (0.0-1.3); Monocytes % 6.1 %; Neutrophils # 2.5 K/mcL (1.6-8.9); Platelet Count 192 K/mcL (140-400); Red Blood Count 4.53 M/mcL (3.82-4.97); Red Cell Distribution Width 14.5 % (11.5-14.5); Segmented Neutrophils % 45.3 %
[2017-05-02 06:33] LABS: Alanine Aminotransferase 10 Units/L (0-55); Albumin 2.9 g/dL (3.5-5.0); Alkaline Phosphatase 85 Units/L (38-126); Aspartate Amino Transferase 11 Units/L (5-34); BUN/Creatinine Ratio 9 (6-26); Bilirubin,Total 0.5 mg/dL (0.2-1.2); Blood Urea Nitrogen 7 mg/dL (7-20); Calcium 8.2 mg/dL (8.6-10.8); Carbon Dioxide 19 mEq/L (19-29); Chloride 112 mEq/L (98-109); Globulin 2.8 g/dL (2.4-3.5); Glucose 72 mg/dL (70-99); Osmolality,Calculated 281 (280-300); Potassium 3.6 mEq/L (3.5-4.5); Sodium 137 mEq/L (136-145); Total Protein 5.7 g/dL (6.0-8.3); eGFR For African Americans > 60 (> 60); eGFR For Non-African Americans > 60 (> 60)
[2017-05-02] MEDS: Acetaminophen 325 MG TABLET PO PRN (08:07)
[2017-05-02] MEDS: 0.9 % Sodium Chloride 1,000 ML IVC SCH (08:08)
[2017-05-02] MEDS ORDERED: hydrOXYzine pamoate 25 MG CAPSULE PO SCH (09:00)
[2017-05-02 14:14] VITALS: BP 120/73
[2017-05-02 14:47] LABS: Total Volume 24 Hour,Urine 1.37 Liters (0.60-1.60)
--- NOTE | 2017-05-02 15:21 | Discharge Summary ---
Date of Encounter: 05/02/17 Time of Encounter: 15:18 - Discharge Diagnosis (1) Abdominal pain Priority: Primary Status: Acute Qualifiers: Abdominal location: unspecified location Qualified Code(s): R10.9 - Unspecified abdominal pain (2) Intractable nausea and vomiting Priority: Primary Status: Acute Qualifiers: Vomiting type: unspecified Qualified Code(s): R11.2 - Nausea with vomiting , unspecified (3) GERD (gastroesophageal reflux disease) Priority: Secondary Status: Chronic Qualifiers: Esophagitis presence: without esophagitis Qualified Code(s): K21.9 - Gastro -esophageal reflux disease without esophagitis - Discharge Medications Home Medications: Biotin 1,000 mcg PO DAILY 07/22/16 [History] Dicyclomine [Bentyl] 40 mg PO QID PRN 05/01/17 [History] Omeprazole [PriLOSEC] 20 - 40 mg PO DAILY 05/01/17 [History] Promethazine HCl [Promethegan] 1 supp RC Q6H PRN 05/01/17 [History] hydrOXYzine pamoate [Hydroxyzine Pamoate] 25 mg PO DAILY 05/01/17 [History] Allergies/Adverse Reactions: 3 Allergy/AdvReac Type Severity Reaction Status Date / Time meperidine [From Demerol] Allergy Confusion Verified 05/01/17 10:38 Date of admission: 05/01/17 00:48 Primary care physician: Kathrine Orteag CNP Discharging clinician: Tank Martinez Anticipated date of discharge: 05/02/17 - Patient Status Disposition: Home, Self-Care Condition: Good Overall status at discharge: patient is progressing back to baseline - Discharge Instructions Follow Up With: Kathrine Ortega CNP [Primary Care Provider] - - Diet and Activity Activity: resume usual activities as tolerated Diet: advance to your usual diet Hospital course: Ms. Holden is a 41 year old female Admitted for intractable nausea and vomiting/ abdominal pain. Suspected to have irritable bowel disease/cyclical vomiting. She has not had any EGD or colonoscopy but had an ultrasound and HIDA scan all of her gallbladder which is apparently okay as well as CT abdomen. She is on multiple psych medication as well as pain and nausea medicines. her hospice community liaison ordered 24-hour urine collection for 5 HIAA metanephrines VMA and Porphyrins. Upon her request Same is ordered and her hospice community liaison in [place] will follow it. She is tolerating full liquids now and wants to go home and follow with her family doctor. We offered her a GI consultation and further testing here in our facility but she would rather like those have to be done in [place] through her hospice community liaison. - Time Spent with Patient Total time spent providing and/or coordinating discharge services: Less than 30 minutes - Constitutional Vitals: Temp Pulse Resp BP Pulse Ox 98.6 F 83 16 120/73 98 05/02/17 14:07 05/02/17 14:07 05/02/17 14:07 05/02/17 14:07 05/02/17 14:07 General appearance: Present: A&O X 3, answers questions appropriately. Absent: no acute distress - Head Head exam: Present: atraumatic, normocephalic - Eye Eye exam: Present: PERRL, conjuntiva pink, sclera anicteric Pupils: Present: PERRL - Neck Neck exam general surgery: Present: supple, trachea midline. Absent: lymphadenopathy - Respiratory Respiratory exam: Present: CTAB. Absent: accessory muscle use, rales, rhonchi, wheezes - Cardiovascular Cardiovascular exam: Present: RRR, +S1, +S2. Absent: diastolic murmur, gallop, rubs, systolic murmur - GI/Abdominal GI/Abdominal exam: Present: normal bowel sounds, soft, no peritoneal signs. Absent: distended, tenderness - Extremities Exam Extremities exam: Present: warm, radial pulses palpable and symmetrical. Absent : calf tenderness, cyanotic, pedal edema - Neurological Exam Neurological exam: Present: CN II-XII intact, oriented X3, no focal deficits. Absent: pronater drift, facial droop, speech deficit - Skin Skin exam: Present: dry, intact
[2017-05-02 16:40] LABS: Creatinine 24 Hour,Urine 1.18 g/day (0.71-1.65)
== END 2017-05-02 17:01 | disposition home or self-care (01) ==
LOC: 3ANU 21:33 → EMEROO 21:33 → 3ANU 05-01 01:08
PROVIDERS: ADMIT Internal Medicine; ATTEND Hospitalist